=== PATIENT | female | born 1965 | race Caucasian/White ===

== ENCOUNTER → 2019-01-01 | Outpatient (CLI) | payer OTHER ==
[~2019-01-01] MED LIST: KETO10 PO; Vistaril25 MG PO
[2019-01-03 15:06] LABS: HPV 16 Negative (Negative); HPV 18 Negative (Negative); HPV OTHER HR TYPES Negative (Negative)
== END | disposition home or self-care (01) ==
LOC: LAB 19:13 → LAB SHORT 19:13
PROVIDERS: Physician Assistant
DX: Z12.4 Encounter for screening for malignant neoplasm of cervix (principal)
CPT/HCPCS: 87624; G0145

== ENCOUNTER 2019-02-11 20:45 | Emergency (ER) | payer OTHER ==
[~2019-02-11] VITALS: Ht 162.6 cm; Wt 90.7 kg
[2019-02-11] MEDS ORDERED: Vistaril25 MG PO (22:03)
[2019-02-11] MEDS ORDERED: KETO10 PO (22:05)
== END 2019-02-11 22:14 | disposition home or self-care (01) ==
LOC: ER 20:45
DX: F32.9 Major depressive disorder, single episode, unspecified (principal); F41.9 Anxiety disorder, unspecified; F43.9 Reaction to severe stress, unspecified
CPT/HCPCS: 99284

== ENCOUNTER → 2024-05-29 | Outpatient (CLI) | payer OTHER ==
[2024-06-04 10:12] LABS: 6-ACETYLMORPHINE, URN, QUANT <10 ng/mL; CODEINE, URN, QUANT <20 ng/mL; HYDROCODONE, URN, QUANT <20 ng/mL; HYDROMORPHONE, URN, QUANT <20 ng/mL; MORPHINE, URN, QUANT <20 ng/mL; NORHYDROCODONE, URN, QUANT <20 ng/mL; NOROXYCODONE, URN, QUANT <20 ng/mL; NOROXYMORPHONE, URN, QUANT <20 ng/mL; OXYCODONE, URN, QUANT <20 ng/mL; OXYMORPHONE, URN, QUANT <20 ng/mL
== END ==
LOC: LAB 18:31 → LAB SHORT 18:31
PROVIDERS: Family Medicine
DX: E61.1 Iron deficiency (principal); Z79.899 Other long term (current) drug therapy; R42 Dizziness and giddiness
CPT/HCPCS: 87086; G0480

== ENCOUNTER 2024-06-16 10:35 | Observation (INO) | payer OTHER ==
[~2024-06-16] VITALS: Ht 160 cm; Wt 76.2 kg
[2024-06-16 10:59] LABS: Source, Urine Voided
[2024-06-16 11:06] LABS: Appearance, Urine Clear (Clear); Bilirubin, Urine Neg (Neg); Blood, Urine Neg (Neg); Color, Urine Yellow (P-Yellow); Glucose Qualitative, Urine Neg (Neg); Ketones, Urine Neg (Neg); Leukocyte Esterase, Urine Neg (Neg); Nitrite, Urine Neg (Neg); Protein, Urine 1+ (Neg); Specific Gravity, Urine 1.015 (1.003-1.022); Urobilinogen, Urine 1+ (Normal); pH, Urine 6.5 (5.0-8.0)
[2024-06-16 11:10] LABS: BASOPHILS ABSOLUTE AUTO 0.06 K/mm3 (0.00-0.23); BASOPHILS PERCENT AUTO 1 % (0-2); EOSINOPHILS ABSOLUTE AUTO 0.07 K/mm3 (0.00-0.68); EOSINOPHILS PERCENT AUTO 2 % (0-6); Hematocrit 38.4 % (33.0-51.0); Hemoglobin 12.4 g/dL (11.5-16.0); IMMATURE GRAN ABSOLUTE AUTO 0.01 K/mm3 (0.00-0.10); IMMATURE GRAN PERCENT AUTO 0 % (0-1); LYMPHOCYTES ABSOLUTE AUTO 1.46 K/mm3 (0.84-5.20); LYMPHOCYTES PERCENT AUTO 30 % (21-46); MONOCYTES ABSOLUTE AUTO 0.37 K/mm3 (0.16-1.47); MONOCYTES PERCENT AUTO 8 % (4-13); Mean Corpuscular HGB 26.8 pg (26.0-34.0); Mean Corpuscular HGB Conc 32.3 g/dL (31.5-36.5); Mean Corpuscular Volume 83 fL (80-100); Mean Platelet Volume 11.2 fL (9.1-12.4); NEUTROPHILS ABSOLUTE AUTO 2.83 K/mm3 (1.96-9.15); NEUTROPHILS PERCENT AUTO 59 % (41-73); Platelet Count 294 K/mm3 (150-400); RDW Coefficient Variation 14.3 % (11.7-14.2); RDW Standard Deviation 43.3 fL (35.1-46.3); Red Blood Cell Count 4.62 M/mm3 (3.80-5.20)
[2024-06-16 11:22] LABS: U Amphetamine Screen Not Detected; U Barbituate Screen Not Detected; U Benzodiazapine Screen Not Detected; U Buprenorphine Screen Not Detected; U Cannabinoids Screen Not Detected; U Cocaine Screen Not Detected; U Methadone Screen Not Detected; U Methamphetamine Screen Not Detected; U Opiates Screen Not Detected; U Oxycodone Screen Not Detected; U Phencyclidine Screen Not Detected
[2024-06-16 11:31] LABS: Alanine Aminotransfer (ALT/SGP 19 U/L (12-78); Albumin, Blood 3.5 g/dL (3.4-5.0); Albumin/Globulin Ratio 0.9 (0.8-1.8); Alk Phos 112 U/L (50-136); Anion Gap 6 mmol/L (3-11); Aspartate Aminotrans (AST/SGOT 12 U/L (12-37); Bilirubin, Total 0.2 mg/dL (0.1-1.0); Blood Urea Nitrogen 20 mg/dL (8-24); Bun/Creatinine Ratio 24.5 (12.0-20.0); CO2, Blood 28 mmol/L (21-32); Chloride, Blood 113 mmol/L (98-108); Creatinine, Blood 0.82 mg/dL (0.40-1.00); Ethanol (Alcohol), Blood, Med <3 mg/dL; Glomerular Filtration Rate 82 (60-); Glucose, Blood 108 mg/dL (70-99); Sodium, Blood 143 mmol/L (136-145); Total Protein, Blood 7.5 g/dL (6.4-8.2)
[2024-06-16] MEDS ORDERED: NEURONTIN300 MG PO (12:16)
[2024-06-16] MEDS ORDERED: VENLAFAXINE HC225 MG PO (12:16)
[2024-06-16] MEDS ORDERED: Oxybutynin Chlo10 MG PO (12:17)
[2024-06-16] MEDS ORDERED: OLANZapine 10 MG Tab PO ONE (16:05)
[2024-06-16 18:46] LABS: Influenza A, PCR NEGATIVE (NEGATIVE); Influenza B, PCR NEGATIVE (NEGATIVE); Resp Syncytial Virus, PCR NEGATIVE (NEGATIVE); SARS-Cov-2 (COVID-19) PCR, MMC NEGATIVE (NEGATIVE)
[2024-06-17] MEDS ORDERED: Ibuprofen 400 MG Tab PO ONE (05:15)
[2024-06-17] MEDS ORDERED: HYDROCODONE-AC1 EAC7 PO (07:54)
[2024-06-17] MEDS ORDERED: QUEtiapine Fumarate 25 MG Tab PO SCH (21:00)
[2024-06-18] MEDS ORDERED: OLANZapine ODT 5 MG Tab MM ONE (03:10)
[2024-06-18] MEDS ORDERED: Nystatin 100,000 Unit/GM CREAM 15 GM TOP PRN (03:15)
[2024-06-18] MEDS ORDERED: Acetaminophen 325 MG TABLET PO ONE (03:15)
[2024-06-18] MEDS ORDERED: QUEtiapine Fumarate 25 MG Tab PO PRN (11:15)
[2024-06-18] MEDS ORDERED: QUETIAPINE FUM10011 PO (11:32)
[2024-06-18] MEDS ORDERED: TRAZ100 PO (11:32)
[2024-06-18] MEDS ORDERED: QUEtiapine Fumarate 50 MG TAB PO SCH (21:00)
[2024-06-19] MEDS ORDERED: Acetaminophen 500 MG Tab PO ONE (11:05)
--- NOTE | 2024-06-19 11:19 | NUR ---
Spiritual Care Visit. Pt. is awake in bed and immediately welcomed my visit. Pt. is pleasant, but displays evidence of some confusion. Pt. displayed a difficult time verbalizing her life review but welcomed [facility] to pray for her. Prayed for Pt. Pt. verbalized gratitude for the spiritual care visit.
[2024-06-19] MEDS ORDERED: QUEtiapine Fumarate 100 MG Tab PO SCH (21:00)
[2024-06-19] MEDS ORDERED: Calcium Carbonate 500 MG Tab Chew PO ONE (23:30)
[2024-06-20] MEDS ORDERED: Acetaminophen 500 MG Tab PO ONE (08:50)
[2024-06-20 09:06] VITALS: BP 99/72
== END 2024-06-20 23:00 | disposition home or self-care (01) ==
LOC: ER 10:35 → EOR 10:36
PROVIDERS: Emergency Medicine; ADMIT Emergency Medicine
DX: F29 Unspecified psychosis not due to a substance or known physiological condition (principal); I25.2 Old myocardial infarction; Z79.899 Other long term (current) drug therapy
CPT/HCPCS: 0241U; 70450; 76857; 80053; 80320; 84443; 85025; 86592; 93005; 93010; 99285-25; A9270; G0378